=== PATIENT | male | born 1995 | race African-American/Black ===

== ENCOUNTER 2024-10-26 21:22 | Emergency (ER) | payer SELFPAY ==
[~2024-10-26] VITALS: Ht 182.9 cm; Wt 75.0 kg
[2024-10-27 01:37] LABS: BASO # 0.1 10^3/uL (0.0-0.2); BASO % 0.4 % (0.0-1.0); EOS # 0.0 10^3/uL (0.0-0.5); EOS % 0.0 % (0.0-3.0); LYMPH # 0.8 10^3/uL (1.5-5.0); LYMPH % 5.9 % (24.0-44.0); MONO # 0.5 10^3/uL (0.0-0.8); MONO % 3.9 % (2.0-8.0); NEUTROPHILS # 11.9 10^3/uL (1.5-8.5); NEUTROPHILS % 89.4 % (36.0-66.0); PLATELET COUNT, AUTOMATED 306 10^3/uL (150-450)
[2024-10-27 02:09] LABS: CALCIUM LEVEL 9.8 MG/DL (8.5-10.1); CARBON DIOXIDE LEVEL 23 MMOL/L (20-31); CHLORIDE LEVEL 104 MMOL/L (98-107); CK-MB VALUE MASS 3.1 NG/ML (<3.6); CREATININE FOR GFR 0.85 MG/DL (0.70-1.30); GLOMERULAR FILTRATION RATE > 90.0 (>60); POTASSIUM SERUM 4.3 MMOL/L (3.5-5.1); SODIUM LEVEL 141 MMOL/L (136-145)
[2024-10-27 02:10] LABS: CPK CREATINE PHOSPHOKINASE 320 U/L (46-171); MB/CK RELATIVE INDEX 0.96 (< OR =4)
[2024-10-27] MEDS: FLUORESCEIN OPHTH 1 MG STRIP OD ONE (02:10)
[2024-10-27] MEDS: PROPARACAINE 0.5% OPHTH SOL 15ML OD ONE (02:10)
[2024-10-27] MEDS ORDERED: ISOVUE-370 76% 100 ML VIAL As Ordered ONE (03:03)
[2024-10-27] MEDS: KETOROLAC 30 MG/ML 1 ML VIAL IV ONE (03:05)
[2024-10-27 06:42] VITALS: BP 131/72; TEMP 97.7; O2SAT 98
== END 2024-10-27 06:47 | disposition short-term general hospital (02) ==
LOC: M ED 21:22
DX: H21.01 Hyphema, right eye (principal); H53.131 Sudden visual loss, right eye
CPT/HCPCS: 70450; 70480; 70496; 71045; 80048; 82550; 82553; 84484; 85025; 93005; 96374; 99284; J1885; Q9967